=== PATIENT | male | born 1960 | race Caucasian/White ===

== ENCOUNTER 2023-02-07 16:50 | Outpatient (REF) | payer BC, SELFPAY ==
[2023-02-07 16:08] LABS: Hemoglobin A1C 7.4 % (<5.7)
[2023-02-07 16:22] LABS: ALT 23 U/L (16-63); AST 18 U/L (15-37); Albumin 3.5 g/dL (3.4-5.0); Alkaline Phosphatase 59 U/L (46-116); Anion Gap 10.6 mmol/L (3-11); BUN 28 mg/dL (7-18); Bilirubin, Total 0.6 mg/dL (0.2-1.0); CO2 24.4 mmol/L (21.0-32.0); CREATININE 1.4 mg/dL (0.70-1.30); Calcium 9.2 mg/dL (8.5-10.1); Calculated LDL 21 mg/dL (<100); Chloride 105 mmol/L (98-107); Cholesterol 75 mg/dL (<200); Estimated GFR 56.48 (mL/min/1.73m2); Glucose 121 mg/dL (74-106); HDL Cholesterol 32 mg/dL (40-60); Potassium 5.3 mmol/L (3.5-5.1); Sodium 140 mmol/L (136-145); Total Protein 6.7 g/dL (6.4-8.2); Triglyceride 112 mg/dL (<150)
[2023-02-07 16:36] LABS: COMMENT (LAB VIEW ONLY) 67.91 mg/dL
[2023-02-07 16:37] LABS: Microalb ug/mg Crea 945.5 ug/mg Cr
== END 2023-02-07 16:51 | disposition home or self-care (01) ==
LOC: NCHCN 16:50
PROVIDERS: PCP Physician Assistant; Visit Provider Physician Assistant
DX: E07.89 Other specified disorders of thyroid (principal); E11.9 Type 2 diabetes mellitus without complications; N28.9 Disorder of kidney and ureter, unspecified; Z12.5 Encounter for screening for malignant neoplasm of prostate
CPT/HCPCS: 80053; 80061; 84153; 82043; 82570; 83036; 84443

== ENCOUNTER 2024-02-18 07:21 | Outpatient (REF) | payer MEDICARE, SELFPAY ==
[2024-02-18 08:16] LABS: Hemoglobin A1C 7.1 % (<5.7)
[2024-02-18 08:36] LABS: ALT 21 U/L (16-63); AST 14 U/L (15-37); Albumin 3.5 g/dL (3.4-5.0); Alkaline Phosphatase 65 U/L (46-116); Anion Gap 10.6 mmol/L (3-11); BUN 52 mg/dL (7-18); Bilirubin, Total 0.74 mg/dL (0.2-1.0); CO2 21.4 mmol/L (21.0-32.0); Calculated LDL 6 mg/dL (<100); Chloride 109 mmol/L (98-107); Cholesterol 64 mg/dL (<200); Estimated GFR 36.36 (mL/min/1.73m2); Glucose 119 mg/dL (74-106); HDL Cholesterol 30 mg/dL (40-60); Potassium 4.8 mmol/L (3.5-5.1); Sodium 141 mmol/L (136-145); Total Protein 7.3 g/dL (6.4-8.2); Triglyceride 143 mg/dL (<150)
[2024-02-18 08:44] LABS: COMMENT (LAB VIEW ONLY) 115.47 mg/dL; Microalb ug/mg Crea 284.2 ug/mg Cr
[2024-02-18 17:48] LABS: PSA, Screening 1.2 ng/mL (<=4.5)
== END 2024-02-18 07:22 | disposition home or self-care (01) ==
LOC: LBO 07:21
PROVIDERS: PCP Physician Assistant; Visit Provider Physician Assistant
DX: E11.9 Type 2 diabetes mellitus without complications (principal); Z12.5 Encounter for screening for malignant neoplasm of prostate
CPT/HCPCS: 36415; 80053; 80061; 84153; 82043; 82570; 83036

== ENCOUNTER 2024-04-10 03:32 | Outpatient (CLI) | payer MEDICARE, SELFPAY ==
[2024-04-10 11:52] LABS: Anion Gap 7.4 mmol/L (3-11); BUN 30 mg/dL (7-18); CO2 26.6 mmol/L (21.0-32.0); CREATININE 1.9 mg/dL (0.70-1.30); Calcium 9.3 mg/dL (8.5-10.1); Chloride 104 mmol/L (98-107); Estimated GFR 38.66 (mL/min/1.73m2); Glucose 149 mg/dL (74-106); Potassium 4.9 mmol/L (3.5-5.1); Sodium 138 mmol/L (136-145); TSH 1.45 uIU/Ml (0.36-3.74)
== END 2024-04-10 03:33 | disposition home or self-care (01) ==
LOC: LBO 03:32
PROVIDERS: PCP Physician Assistant; Visit Provider Physician Assistant
DX: E03.9 Hypothyroidism, unspecified (principal)
CPT/HCPCS: 36415; 80048; 84443

== ENCOUNTER 2024-10-06 11:46 | Outpatient (REF) | payer MEDICARE, SELFPAY ==
[2024-10-06 16:43] LABS: Anion Gap 7.7 mmol/L (3-11); BUN 23 mg/dL (7-18); CO2 27.3 mmol/L (21.0-32.0); CREATININE 1.6 mg/dL (0.70-1.30); Calcium 8.9 mg/dL (8.5-10.1); Chloride 108 mmol/L (98-107); Estimated GFR 47.52 (mL/min/1.73m2); Glucose 120 mg/dL (74-106); Potassium 5.5 mmol/L (3.5-5.1); Sodium 143 mmol/L (136-145)
[2024-10-06 17:05] LABS: Hemoglobin A1C 6.1 % (<5.7)
== END 2024-10-06 11:47 | disposition home or self-care (01) ==
LOC: NCHCN 11:46
PROVIDERS: PCP Physician Assistant; Visit Provider Physician Assistant
DX: E11.9 Type 2 diabetes mellitus without complications (principal); N28.9 Disorder of kidney and ureter, unspecified
CPT/HCPCS: 80048; 83036

== ENCOUNTER 2025-02-20 00:51 | Outpatient (CLI) | payer MEDICARE, SELFPAY ==
[2025-02-20 09:50] LABS: Hemoglobin A1C 5.8 % (<5.7)
[2025-02-20 10:06] LABS: COMMENT (LAB VIEW ONLY) 47.28 mg/dL
[2025-02-20 10:07] LABS: Microalb ug/mg Crea 518.8 ug/mg Cr
[2025-02-20 10:32] LABS: ALT 32 U/L (16-63); AST 17 U/L (15-37); Albumin 3.7 g/dL (3.4-5.0); Alkaline Phosphatase 63 U/L (46-116); Anion Gap 10.1 mmol/L (3-11); BUN 48 mg/dL (7-18); Bilirubin, Total 0.8 mg/dL (0.2-1.0); CO2 23.9 mmol/L (21.0-32.0); Calcium 9.0 mg/dL (8.5-10.1); Calculated LDL 25 mg/dL (<100); Chloride 105 mmol/L (98-107); Cholesterol 78 mg/dL (<200); Estimated GFR 36.13 (mL/min/1.73m2); Glucose 109 mg/dL (74-106); HDL Cholesterol 40 mg/dL (>or=40); Potassium 5.2 mmol/L (3.5-5.1); Sodium 139 mmol/L (136-145); TSH 0.61 uIU/mL (0.36-3.74); Total Protein 7.3 g/dL (6.4-8.2); Triglyceride 68 mg/dL (<150)
[2025-02-20 19:20] LABS: PSA, Screening 1.2 ng/mL (<=4.5)
== END 2025-02-20 00:52 | disposition home or self-care (01) ==
PROVIDERS: PCP Physician Assistant; Visit Provider Physician Assistant
DX: E03.9 Hypothyroidism, unspecified (principal); E11.9 Type 2 diabetes mellitus without complications; Z12.5 Encounter for screening for malignant neoplasm of prostate
CPT/HCPCS: 36415; 80053; 80061; 84153; 82043; 82570; 83036; 84443